=== PATIENT | female | born 1950 | race African-American/Black ===

== ENCOUNTER → 2018-02-20 | Outpatient (CLI) | payer MEDICARE ==
[2018-02-20 12:03] LABS: INTERNATIONAL RATION (INR) 2.29; PROTHROMBIN TIME 26.3 SEC (11.4-15.4)
[2018-02-20 12:08] LABS: HEMATOCRIT 37.9 % (36.0-47.0); HEMOGLOBIN 12.6 g/dL (12.0-15.5); MEAN CORPUSCULAR HEMOGLOBIN 29.9 pg (27.0-33.4); MEAN CORPUSCULAR HGB CONC 33.2 g/dL (32.0-36.0); MEAN CORPUSCULAR VOLUME 90 fl (80-97); PLATELET COUNT 319 10^3/uL (150-450); RED BLOOD COUNT 4.21 10^6/uL (3.72-5.28); RED CELL DISTRIBUTION WIDTH 14.6 % (11.5-14.0); WHITE BLOOD COUNT 4.5 10^3/uL (4.0-10.5)
[2018-02-20 12:31] LABS: ALANINE AMINOTRANSFERASE 20 U/L (9-52); ALBUMIN 4.5 g/dL (3.5-5.0); ALKALINE PHOSPHATASE 91 U/L (38-126); ANION GAP 10 (5-19); ASPARTATE AMINO TRANSFERASE 25 U/L (14-36); BILIRUBIN,DIRECT 0.5 mg/dL (0.0-0.4); BILIRUBIN,TOTAL 0.6 mg/dL (0.2-1.3); BLOOD UREA NITROGEN 11 mg/dL (7-20); CALCIUM 9.4 mg/dL (8.4-10.2); CARBON DIOXIDE 30 mmol/L (22-30); CHLORIDE 99 mmol/L (98-107); GLUCOSE 103 mg/dL (75-110); SODIUM 138.9 mmol/L (137-145); TOTAL PROTEIN 7.8 g/dL (6.3-8.2)
[2018-02-20 12:38] LABS: ABSOLUTE LYMPHOCYTES# (MANUAL) 1.9 10^3/uL (0.5-4.7); ABSOLUTE MONOCYTES # (MANUAL) 0.4 10^3/uL (0.1-1.4); ABSOLUTE NEUTROPHILS# (MANUAL) 2.2 10^3/uL (1.7-8.2); BASOPHILS % (MANUAL) 0 % (0-2); EOSINOPHILS % (MANUAL) 0 % (0-6); LYMPHOCYTES % (MANUAL) 36 % (13-45); MONOCYTES % (MANUAL) 8 % (3-13); SEGMENTED NEUTROPHILS % (MAN) 49 % (42-78); TOTAL CELLS COUNTED 100
[2018-02-20 12:39] LABS: PLATELET COMMENT ADEQUATE; PLATELET GIANT PRESENT
[2018-02-20 12:41] LABS: ACANTHOCYTES SLIGHT; PLATELET LARGE PRESENT; POIKILOCYTOSIS SLIGHT; POLYCHROMASIA SLIGHT
== END ==
LOC: OD 10:47
PROVIDERS: ATTEND Family Medicine Geriatric Medicine
DX: I10 Essential (primary) hypertension (principal); I48.2 Chronic atrial fibrillation; K21.9 Gastro-esophageal reflux disease without esophagitis; M17.0 Bilateral primary osteoarthritis of knee; Z79.899 Other long term (current) drug therapy
CPT/HCPCS: 36415; 80053; 84443; 85025; 85610

== ENCOUNTER → 2018-03-20 | Outpatient (CLI) | payer MEDICARE ==
[2018-03-20 11:57] LABS: INTERNATIONAL RATION (INR) 2.38; PROTHROMBIN TIME 27.1 SEC (11.4-15.4)
== END ==
LOC: LAB 11:30
PROVIDERS: ATTEND Family Medicine Geriatric Medicine
DX: I48.2 Chronic atrial fibrillation (principal)
CPT/HCPCS: 36415; 85610

== ENCOUNTER → 2018-04-08 | Outpatient (CLI) | payer MEDICARE ==
[2018-04-08 10:47] LABS: INTERNATIONAL RATION (INR) 2.33; PROTHROMBIN TIME 26.7 SEC (11.4-15.4)
== END ==
LOC: LAB 10:15
PROVIDERS: ATTEND Family Medicine Geriatric Medicine
DX: I48.2 Chronic atrial fibrillation (principal)
CPT/HCPCS: 36415; 85610

== ENCOUNTER → 2018-04-15 | Outpatient (CLI) | payer MEDICARE ==
[2018-04-15 11:15] LABS: PROTHROMBIN TIME 23.7 SEC (11.4-15.4)
[2018-04-15 11:16] LABS: PARTIAL THROMBOPLASTIN TIME 41.2 SEC (23.5-35.8)
== END ==
LOC: LAB 10:54
PROVIDERS: ATTEND Physician Assistant
DX: M25.512 Pain in left shoulder (principal); Z79.01 Long term (current) use of anticoagulants
CPT/HCPCS: 36415; 85610; 85730

== ENCOUNTER 2018-05-10 14:04 | Emergency (ER) | payer MEDICARE ==
--- NOTE | 2018-05-10 14:55 | ER Document Report ---
ED Medical Screen (RME) - General TRAVEL OUTSIDE OF THE [place] IN LAST 30 DAYS: No - General Chief Complaint: Leg Pain Stated Complaint: LEG PAIN Time Seen by Provider: 05/10/18 14:48 Notes: 67-year-old female with history of DVT (last DVT >1 year ago) that presents to the emergency department today with complaints of right knee pain and swelling which began yesterday. Patient is on Coumadin. Last INR was checked a "couple of weeks ago". Patient denies any injury or trauma to the area. Patient denies any recent immobilization. I have greeted and performed a rapid initial assessment of this patient. A comprehensive ED assessment and evaluation of the patient, analysis of test results, and completion of the medical decision making process will be conducted by additional ED providers. Review of systems: Constitutional: No symptoms reported EENT: No symptoms reported Cardiovascular: No symptoms reported Respiratory: No symptoms reported Gastrointestinal: No symptoms reported Genitourinary: No symptoms reported Musculoskeletal: Right knee pain/swelling. Skin: No symptoms reported Hematologic/Lymphatic: No symptoms reported Neurological/Psychological: No symptoms reported Yes All other systems reviewed and negative PHYSICAL EXAM GENERAL: Alert, interacts well. No acute distress. HEAD: Normocephalic, atraumatic. EYES: Pupils equal, round, and reactive to light. Extraocular movements intact. ENT: Oral mucosa moist, tongue midline. NECK: Full range of motion. Supple. Trachea midline. LUNGS: No respiratory distress. EXTREMITIES: Moves all 4 extremities spontaneously. Pain with medial and lateral stress testing of right knee. Tenderness to palpation over the right knee joint line. Small amount of swelling over the right knee. Suprapatellar effusion, no prepatellar effusion. Trace pitting edema over the right calf and pre-tibial area on the right. No crepitus. NEUROLOGICAL: Alert and oriented x3. Normal speech. PSYCH: Normal affect, normal mood. SKIN: Warm, dry, normal turgor. No rashes or lesions noted. (JENNIFER BUTLER) - Related Data Allergies/Adverse Reactions: morphine Allergy (Uncoded 05/10/18 14:26) toradol Allergy (Uncoded 05/10/18 14:26) Past Medical History - Social History Chew tobacco use (# tins/day): No Frequency of alcohol use: None Drug Abuse: None Renal/ Medical History: Denies: Hx Peritoneal Dialysis - Vital signs Vitals: Temp Pulse Resp BP Pulse Ox 98.5 F 83 14 138/63 H 99 05/10/18 14:28 05/10/18 14:28 05/10/18 14:28 05/10/18 14:28 05/10/18 14:28 Course - Re-evaluation Re-evalutation: 05/10/18 15:11 Patient is specifically concerned that she may have a DVT despite no risk factors aside from history of DVT, patient would like a Doppler to rule out DVT. Patient is also somewhat concerned she may have a fracture due to the pain and swelling. Doppler and x-ray will be ordered. (JEN GARCIA) - Vital Signs Vital signs: Temp Pulse Resp BP Pulse Ox 98.5 F 83 14 138/63 H 99 05/10/18 14:28 05/10/18 14:28 05/10/18 14:28 05/10/18 14:28 05/10/18 14:28 Doctor's Discharge - Discharge Referrals: NATASHA WEBB PAVinnieC [Primary Care Provider] - Follow up as needed Scribe Documentation - Scribe Written by Elena:: Elena Aleman, 05/10/2018 1542 acting as scribe for :: Na
[2018-05-10 15:50] LABS: PROTHROMBIN TIME 21.8 SEC (11.4-15.4)
[2018-05-10 16:38] LABS: ABSOLUTE BASOPHILS # (AUTO) 0.1 10^3/uL (0.0-0.2); ABSOLUTE EOSINOPHILS # (AUTO) 0.1 10^3/uL (0.0-0.6); ABSOLUTE LYMPHOCYTES (AUTO) 1.8 10^3/uL (0.5-4.7); ABSOLUTE MONOCYTES (AUTO) 0.4 10^3/uL (0.1-1.4); ABSOLUTE NEUT (AUTO) 3.4 10^3/uL (1.7-8.2); BASOPHILS % (AUTO) 0.9 % (0-2); EOSINOPHILS % (AUTO) 1.1 % (0-6); HEMOGLOBIN 12.5 g/dL (12.0-15.5); LYMPHOCYTES % (AUTO) 31.5 % (13-45); MEAN CORPUSCULAR HEMOGLOBIN 30.1 pg (27.0-33.4); MEAN CORPUSCULAR HGB CONC 33.7 g/dL (32.0-36.0); MEAN CORPUSCULAR VOLUME 89 fl (80-97); MONOCYTES % (AUTO) 7.2 % (3-13); PLATELET COUNT 315 10^3/uL (150-450); RED BLOOD COUNT 4.14 10^6/uL (3.72-5.28); RED CELL DISTRIBUTION WIDTH 14.8 % (11.5-14.0); SEGMENTED NEUTROPHILS % (AUTO) 59.3 % (42-78); TOTAL CELLS COUNTED % (AUTO) 100 %; WHITE BLOOD COUNT 5.8 10^3/uL (4.0-10.5)
--- NOTE | 2018-05-10 16:41 | RADIOLOGY REPORT (SQ) ---
EXAM DESCRIPTION: VENOUS UNILATERAL LOWER COMPLETED DATE/TIME: 05/10/2018 4:20 pm REASON FOR STUDY: h/o DVT, right leg swelling COMPARISON: None. TECHNIQUE: Dynamic and static jimenez scale and color images acquired of the right leg venous system. S elected spectral images acquired with additional compression and augmentation maneuvers. The contrala teral common femoral vein and saphenofemoral junction were also imaged. Images stored on PACS. LIMITATIONS: None. FINDINGS: COMMON FEMORAL: Normal phasicity, compression and augmentation. No visualized echogenic ma terial on jimenez scale. No defects on color images. FEMORAL: Normal compression and augmentation. No visualized echogenic material on jimenez scale. No defe cts on color images. POPLITEAL: Normal compression, augmentation. No visualized echogenic material on jimenez scale. No defec ts on color images. CALF VESSELS: Normal compression, augmentation. No visualized echogenic material on jimenez scale. No de fects on color images. GSV and SSV: Normal compression, augmentation. No visualized echogenic material on jimenez scale. No def ects on color images. ANY DEEP VENOUS INSUFFICIENCY: No. ANY EVIDENCE OF POPLITEAL CYST: No. OTHER: No other significant finding. CONTRALATERAL COMMON FEMORAL VEIN AND SAPHENOFEMORAL JUNCTION: Normal phasicity, compression and augmentation. No visualized echogenic material on jimenez scale. No de fects on color images. IMPRESSION: NO EVIDENCE DVT OR SVT IN THE RIGHT LEG. TECHNICAL DOCUMENTATION: JOB ID: [id number] [employer]- All Rights Reserved Reading location - IP/workstation name: [email or web address]
--- NOTE | 2018-05-10 16:50 | RADIOLOGY REPORT (SQ) ---
EXAM DESCRIPTION: KNEE RIGHT 3 VIEWS COMPLETED DATE/TIME: 05/10/2018 4:00 pm REASON FOR STUDY: right knee pain and osteoporosis COMPARISON: None. NUMBER OF VIEWS: Three views. TECHNIQUE: AP, lateral, and sunrise patella radiographic images acquired of the right knee. LIMITATIONS: None. FINDINGS: MINERALIZATION: Normal. BONES: No acute fracture or dislocation. No worrisome bone lesions. Small osteophytes. JOINT: No effusion. No chondrocalcinosis. OTHER: No other significant finding. IMPRESSION: MILD DEGENERATIVE CHANGES. NO ACUTE FINDINGS. TECHNICAL DOCUMENTATION: JOB ID: [id number] [employer]- All Rights Reserved Reading location - IP/workstation name: [email or web address]
[2018-05-10 17:01] LABS: ALANINE AMINOTRANSFERASE 20 U/L (9-52); ALBUMIN 4.3 g/dL (3.5-5.0); ALKALINE PHOSPHATASE 101 U/L (38-126); ANION GAP 11 (5-19); ASPARTATE AMINO TRANSFERASE 22 U/L (14-36); BILIRUBIN,DIRECT 0.1 mg/dL (0.0-0.4); BILIRUBIN,TOTAL 0.3 mg/dL (0.2-1.3); BLOOD UREA NITROGEN 7 mg/dL (7-20); CALCIUM 9.3 mg/dL (8.4-10.2); CARBON DIOXIDE 31 mmol/L (22-30); CHLORIDE 99 mmol/L (98-107); GLUCOSE 86 mg/dL (75-110); POTASSIUM 4.2 mmol/L (3.6-5.0); SODIUM 141.1 mmol/L (137-145); TOTAL PROTEIN 7.7 g/dL (6.3-8.2)
[2018-05-10] MEDS ORDERED: HYDROCODONE/ACETAMINOPHEN 5-325 MG TABLET PO ONE (17:19)
[2018-05-10] MEDS ORDERED: HYDROCODONE/ACETAMINOPHEN 5-325 MG (6 TAB/ER DISP) PO PRN (17:20)
--- NOTE | 2018-05-10 17:21 | ER Document Report ---
HPI - HPI Patient complains to provider of: right knee pain Time Seen by Provider: 05/10/18 14:48 Onset: Yesterday Onset/Duration: Sudden Quality of pain: Achy Severity: Severe Pain Level: 4 Context: [facility] emergency department with complaints of right knee pain. Patient reports it started hurting yesterday. Patient does admit to shopping on black Friday and putting up [place] decorations the next day. Denies trauma. Denies twisting knee. Denies past medical history of injury to the knee. Patient reports it hurts to walk on the knee. Patient is taking Coumadin right now for A. fib. Also reports she had a blood clot in her right axilla at one time. Denies other symptoms such as fever nausea vomiting diarrhea. Associated Symptoms: None Exacerbated by: Walking Relieved by: Denies Similar symptoms previously: No Recently seen / treated by doctor: No - DERM Skin Color: Normal Past Medical History - General Information source: Patient, Relative - daughter Last Menstrual Period: hyst - Social History Smoking Status: Never Smoker Chew tobacco use (# tins/day): No Frequency of alcohol use: None Drug Abuse: None Lives with: Family Family History: Reviewed & Not Pertinent Patient has suicidal ideation: No Patient has homicidal ideation: No - Past Medical History Cardiac Medical History: Reports: Hx Atrial Fibrillation, Hx DVT - right axillae Renal/ Medical History: Denies: Hx Peritoneal Dialysis Musculoskeletal Medical History: Reports Hx Arthritis, Reports Hx Fibromyalgia Past Surgical History: Reports: Hx Bowel Surgery, Hx Hysterectomy, Hx Orthopedic Surgery Vertical Provider Document - CONSTITUTIONAL Agree With Documented VS: Yes Exam Limitations: No Limitations General Appearance: WD/WN, No Apparent Distress - INFECTION CONTROL TRAVEL OUTSIDE OF THE [place] IN LAST 30 DAYS: No - HEENT HEENT: Atraumatic, Normocephalic - NECK Neck: Normal Inspection, Supple - RESPIRATORY Respiratory: No Respiratory Distress - CARDIOVASCULAR Cardiovascular: Regular Rate - MUSCULOSKELETAL/EXTREMETIES Musculoskeletal/Extremeties: MAEW, FROM, Tender - right knee medially ttp, no erythema, no obvious deformity\swelling,no warmth, patient has full range of motion good pedal pulse - NEURO Level of Consciousness: Awake, Alert, Appropriate Motor/Sensory: No Motor Deficit - DERM Integumentary: Warm, Dry Adult Front & Back Diagram: 1 - Reports pain, medially ttp Course - Re-evaluation Re-evalutation: 05/10/18 18:34 Labs Doppler and knee x-ray unremarkable. Patient was instructed on negative labs, Doppler and negative knee x-ray no effusion no DVT. Patient was also instructed on labs patient does have an primary care provider appointment on this Friday. She was instructed on conservative treatment including rest ice elevate. Patient was offered crutches and declined reports she has a cane she would use. Patient was also instructed to monitor the knee for warmth redness swelling. She verbalized understanding to all instructions 05/10/18 18:38 Dictation of this chart was performed using voice recognition software; therefore, there may be some unintended grammatical errors. - Vital Signs Vital signs: Temp Pulse Resp BP Pulse Ox 98.5 F 83 14 138/63 H 99 05/10/18 14:28 05/10/18 14:28 05/10/18 14:28 05/10/18 14:28 05/10/18 14:28 - Laboratory Result Diagrams: 05/10/18 16:26 05/10/18 16:26 Laboratory results interpreted by me: 05/10/18 05/10/18 05/10/18 15:28 16:26 16:26 RDW 14.8 H PT 21.8 H Carbon Dioxide 31 H - Diagnostic Test Radiology reviewed: Image reviewed, Reports reviewed - EXAM DESCRIPTION: VENOUS UNILATERAL LOWER COMPLETED DATE/TIME: 05/10/2018 4:20 pm REASON FOR STUDY: h/o DVT, right leg swelling COMPARISON: None. TECHNIQUE: Dynamic and static jimenez scale and color images acquired of the right leg venous system. Selected spectral images acquired with additional compression and augmentation maneuvers. The contralateral common femoral vein and saphenofemoral junction were also imaged. Images stored on PACS. LIMITATIONS: None. FINDINGS: COMMON FEMORAL: Normal phasicity, compression and augmentation. No visualized echogenic material on jimenez scale. No defects on color images. FEMORAL: Normal compression and augmentation. No visualized echogenic material on jimenez scale. No defects on color images. POPLITEAL: Normal compression, augmentation. No visualized echogenic material on jimenez scale. No defects on color images. CALF VESSELS: Normal compression, augmentation. No visualized echogenic material on jimenez scale. No defects on color images. GSV and SSV: Normal compression, augmentation. No visualized echogenic material on jimenez scale. No defects on color images. ANY DEEP VENOUS INSUFFICIENCY: No. ANY EVIDENCE OF POPLITEAL CYST: No. OTHER: No other significant finding. CONTRALATERAL COMMON FEMORAL VEIN AND SAPHENOFEMORAL JUNCTION: Normal phasicity, compression and augmentation. No visualized echogenic material on jimenez scale. No defects on color images. IMPRESSION: NO EVIDENCE DVT OR SVT IN THE RIGHT LEG. TECHNICAL DOCUMENTATION: JOB ID: [id number] [employer]- All Rights Reserved EXAM DESCRIPTION: KNEE RIGHT 3 VIEWS COMPLETED DATE/ TIME: 05/10/2018 4:00 pm REASON FOR STUDY: right knee pain and osteoporosis COMPARISON: None. NUMBER OF VIEWS: Three views. TECHNIQUE: AP, lateral, and sunrise patella radiographic images acquired of the right knee. LIMITATIONS: None. FINDINGS: MINERALIZATION: Normal. BONES: No acute fracture or dislocation. No worrisome bone lesions. Small osteophytes. JOINT: No effusion. No chondrocalcinosis. OTHER: No other significant finding. IMPRESSION: MILD DEGENERATIVE CHANGES. NO ACUTE FINDINGS. Discharge - Discharge Clinical Impression: Right medial knee pain Condition: Stable Disposition: HOME, SELF-CARE Instructions: Oral Narcotic Medication ([facility]) Additional Instructions: *You have been evaluated for right knee pain *Rest/Ice/Elevate your knee *Follow up with orthopedics for continued pain-call for an appointment *Take medication as prescribed *Follow up with Dr Redmond Friday as scheduled *Return to ED for worsening condition, changes, needs Referrals: NATASHA WEBB PA-C [Primary Care Provider] - Follow up as needed
[2018-05-10 17:46] VITALS: BP 123/60
== END 2018-05-10 17:58 | disposition home or self-care (01) ==
LOC: ER 14:04
DX: M25.561 Pain in right knee (principal); I48.91 Unspecified atrial fibrillation; Z79.01 Long term (current) use of anticoagulants; Z86.718 Personal history of other venous thrombosis and embolism
CPT/HCPCS: 99284; 36415; 85025; 85610; 80053; 93971; 73562; A9270 ×2

== ENCOUNTER → 2018-05-12 | Outpatient (CLI) | payer MEDICARE ==
[2018-05-12 11:57] LABS: INTERNATIONAL RATION (INR) 2.13; PROTHROMBIN TIME 24.8 SEC (11.4-15.4)
== END ==
LOC: LAB 11:14
PROVIDERS: ATTEND Family Medicine Geriatric Medicine
DX: I48.2 Chronic atrial fibrillation (principal)
CPT/HCPCS: 36415; 85610

== ENCOUNTER → 2018-06-04 | Outpatient (CLI) | payer MEDICARE ==
[2018-06-04 14:06] LABS: INTERNATIONAL RATION (INR) 3.07; PROTHROMBIN TIME 33.1 SEC (11.4-15.4)
== END ==
LOC: LAB 13:41
PROVIDERS: ATTEND Family Medicine Geriatric Medicine
DX: I48.2 Chronic atrial fibrillation (principal)
CPT/HCPCS: 36415; 85610

== ENCOUNTER → 2018-06-19 | Outpatient (CLI) | payer MEDICARE ==
[2018-06-19 11:45] LABS: PROTHROMBIN TIME 34.2 SEC (11.4-15.4)
== END ==
LOC: LAB 11:08
PROVIDERS: ATTEND Family Medicine Geriatric Medicine
DX: I48.2 Chronic atrial fibrillation (principal)
CPT/HCPCS: 36415; 85610

== ENCOUNTER → 2018-07-01 | Outpatient (CLI) | payer MEDICARE ==
[2018-07-01 11:50] LABS: INTERNATIONAL RATION (INR) 2.39; PROTHROMBIN TIME 27.2 SEC (11.4-15.4)
== END ==
LOC: LAB 11:28
PROVIDERS: ATTEND Family Medicine Geriatric Medicine
DX: I48.2 Chronic atrial fibrillation (principal)
CPT/HCPCS: 36415; 85610

== ENCOUNTER → 2018-07-14 | Outpatient (CLI) | payer MEDICARE ==
[2018-07-14 13:58] LABS: INTERNATIONAL RATION (INR) 2.22; PROTHROMBIN TIME 25.7 SEC (11.4-15.4)
== END ==
LOC: LAB 13:11
PROVIDERS: ATTEND Family Medicine Geriatric Medicine
DX: I48.2 Chronic atrial fibrillation (principal)
CPT/HCPCS: 36415; 85610

== ENCOUNTER → 2018-07-28 | Outpatient (CLI) | payer MEDICARE ==
[2018-07-28 11:35] LABS: INTERNATIONAL RATION (INR) 2.22; PROTHROMBIN TIME 25.7 SEC (11.4-15.4)
== END ==
LOC: LAB 10:51
PROVIDERS: ATTEND Family Medicine Geriatric Medicine
DX: I48.2 Chronic atrial fibrillation (principal)
CPT/HCPCS: 36415; 85610

== ENCOUNTER 2018-08-30 13:53 | Emergency (ER) | payer MEDICARE ==
[2018-08-30] MEDS ORDERED: ONDANSETRON HCL INJ/PF 4 MG/2 ML SDV IV ONE (14:12)
--- NOTE | 2018-08-30 14:16 | ER Document Report ---
ED Medical Screen (RME) - General Chief Complaint: Abdominal Pain Stated Complaint: STOMACH PAIN Time Seen by Provider: 08/30/18 14:11 Primary Care Provider: ANY BAE MD [Primary Care Provider] - Follow up as needed Notes: Patient is complaining of abdominal pain since awakening this morning. Yesterday she did not feel well and did not eat anything, but did not have the abdominal pain until this mornin. She says the pain is located primarily in the midline suprapubic, lower abdomen. She has a history of a previous blockage that required surgery and had similar pain and symptoms at that time. Denies a ny nausea or vomiting. Denies any diarrhea. Last bowel movement was yesterday. Denies any chest pain or shortness of breath. Denies fever. Patient has a history of heart murmur and a clot in her right axilla and for those reasons, she is on Coumadin. History of hysterectomy, rotator cuff surgery. Hx hypertension, GERD. Not diabetic. TRAVEL OUTSIDE OF THE [place] IN LAST 30 DAYS: No - Related Data Allergies/Adverse Reactions: morphine Allergy (Uncoded 08/30/18 13:58) toradol Allergy (Uncoded 08/30/18 13:58) Past Medical History - Past Medical History Cardiac Medical History: Reports: Hx Atrial Fibrillation, Hx DVT - right axillae, Hx Hypertension Renal/ Medical History: Denies: Hx Peritoneal Dialysis Musculoskeltal Medical History: Reports Hx Arthritis, Reports Hx Fibromyalgia Past Surgical History: Reports: Hx Bowel Surgery, Hx Hysterectomy, Hx Orthopedic Surgery Physical Exam - Vital signs Vitals: Temp Pulse Resp BP Pulse Ox 98.4 F 83 18 156/80 H 99 08/30/18 13:59 08/30/18 13:59 08/30/18 13:59 08/30/18 13:59 08/30/18 13:59 Course - Vital Signs Vital signs: Temp Pulse Resp BP Pulse Ox 98.4 F 83 18 156/80 H 99 08/30/18 13:59 08/30/18 13:59 08/30/18 13:59 08/30/18 13:59 08/30/18 13:59 Doctor's Discharge - Discharge Referrals: ANY BAE MD [Primary Care Provider] - Follow up as needed
[2018-08-30] MEDS ORDERED: FENTANYL CITRATE INJ/PF 100 MCG/2 ML AMPUL IV ONE ×2 (14:51→17:08)
[2018-08-30 15:03] LABS: APPEARANCE,URINE CLEAR; BILIRUBIN,URINE NEGATIVE (NEGATIVE); COLOR,URINE YELLOW; GLUCOSE, URINE NEGATIVE (NEGATIVE); KETONES,URINE NEGATIVE (NEGATIVE); LEUKOCYTE ESTERASE,URINE NEGATIVE (NEGATIVE); NITRITE,URINE NEGATIVE (NEGATIVE); PROTEIN,URINE NEGATIVE (NEGATIVE); URINE SPECIFIC GRAVITY 1.014; UROBILINOGEN,URINE NEGATIVE mg/dL (<2.0)
[2018-08-30] MEDS ORDERED: DIPHENHYDRAMINE HCL 50 MG/ML VIAL IV ONE (15:11)
--- NOTE | 2018-08-30 15:18 | ER Document Report ---
ED General - General Chief Complaint: Abdominal Pain Stated Complaint: STOMACH PAIN Time Seen by Provider: 08/30/18 14:11 Primary Care Provider: ANY BAE MD [Primary Care Provider] - Follow up in 3-5 days Notes: Patient is a 67-year-old female who presents to the emergency department with a chief complaint of lower abdominal pain. Her pain started this morning after she woke up. She describes her pain as a sharp, constant pain. It is in her mid lower abdomen. She has not tried anything to try to make her pain better. Walking makes the pain worse. She denies any nausea, vomiting, or diarrhea. She did have a bowel movement yesterday, but states that she had to take some stool softeners. She does take tramadol for chronic pain. Her last colonoscopy was 9 years ago and was unremarkable. Has a history of hypertension, a colon resection in 1999, hysterectomy, GERD, blood clot in her right axillary area, atrial fibrillation, and insomnia. She currently takes tramadol, bisoprolol, Coumadin, omeprazole, and Ambien. She has a prevalent family history of colon cancer. TRAVEL OUTSIDE OF THE [place] IN LAST 30 DAYS: No - Related Data Allergies/Adverse Reactions: Iodinated Contrast- Oral and IV Dye Allergy (Verified 08/30/18 14:47) morphine Allergy (Uncoded 08/30/18 13:58) toradol Allergy (Uncoded 08/30/18 13:58) Past Medical History - Social History Smoking Status: Former Smoker Family History: Reviewed & Not Pertinent Patient has suicidal ideation: No Patient has homicidal ideation: No - Past Medical History Cardiac Medical History: Reports: Hx Atrial Fibrillation, Hx DVT - right axillae, Hx Hypertension Renal/ Medical History: Denies: Hx Peritoneal Dialysis Musculoskeletal Medical History: Reports Hx Arthritis, Reports Hx Fibromyalgia Past Surgical History: Reports: Hx Bowel Surgery, Hx Hysterectomy, Hx Orthopedic Surgery Review of Systems - Review of Systems Notes: REVIEW OF SYSTEMS: CONSTITUTIONAL : Denies recent illness. Denies recent unintentional weight loss. Denies fever, chills, or sweats. EENT: Denies eye, ear, throat, or mouth pain, discharge, or symptoms. Denies nasal or sinus congestion. CARDIOVASCULAR: Denies chest pain. RESPIRATORY: Denies shortness of breath, cough, congestion, difficulty breathing, or wheezing. GASTROINTESTINAL: See HPI GENITOURINARY: Denies difficulty urinating, burning, blood in urine, urgency or frequency. MUSCULOSKELETAL: Denies neck and back pain. Denies joint pain or swelling. SKIN: Denies rash, itchiness, or lesions HEMATOLOGIC : Denies easy bruising or bleeding. LYMPHATIC: Denies swollen, painful, enlarged glands. NEUROLOGICAL: Denies no numbness or tingling denies weakness. Denies headache. Denies altered mental status. Denies alteration in speech. PSYCHIATRIC: Denies stress, anxiety, alteration in sleep patterns, or depression. All other systems reviewed and negative. Physical Exam - Vital signs Vitals: Temp Pulse Resp BP Pulse Ox 98.4 F 83 18 156/80 H 99 08/30/18 13:59 08/30/18 13:59 08/30/18 13:59 08/30/18 13:59 08/30/18 13:59 - Notes Notes: PHYSICAL EXAMINATION: GENERAL: Appears well, healthy, well-nourished, no acute distress. HEAD: Normocephalic, atraumatic. EYES: PERRL, conjunctiva normal, all extraocular movements intact, sclera nonicteric ENT: Moist mucous membranes. NECK: Supple, no noticeable swelling, redness, rash. Normal range of motion. LUNGS: Equal breath sounds bilaterally and clear to auscultation. No wheezes rales or rhonchi. CARDIOVASCULAR: S1-S2, regular rate, regular rhythm. Radial pulses 2+, normal. ABDOMEN: Normoactive bowel sounds. Soft, tender lower abdomen, no guarding, no rebound tenderness, and no masses palpated. EXTREMITIES: Normal strength and range of motion, no pitting or edema. No cyanosis. NEUROLOGICAL: Moves all extremities upon command. Strength 5/5 in all extremities. PSYCH: Normal mood, normal affect. SKIN: Warm, dry. No rash, lesions, ulcerations noted. Normal skin turgor. Course - Re-evaluation Re-evalutation: 08/30/18 17:[address] of the abdomen was discussed with Dr. Mg. I scrolled through the images and noticed she had quite a large amount of stool in her colon. Dr. Mg agrees with me that the patient does need to have an enema and follow-up with her primary care doctor. 08/30/18 20:18 Patient did have 3 large bowel movements here in the emergency department with out an enema, and most likely had help from the barium solution to have a bowel movement. She will not receive an enema in the emergency department. She will follow-up with her primary care provider, who will refer her out for colonoscopy. She is in agreement with this plan. Verbal discharge instructions were given to the patient. They verbalized understanding. They are stable for discharge. - Vital Signs Vital signs: Temp Pulse Resp BP Pulse Ox 98.4 F 83 18 156/80 H 99 08/30/18 13:59 08/30/18 13:59 08/30/18 13:59 08/30/18 13:59 08/30/18 13:59 - Laboratory Result Diagrams: 08/30/18 16:20 08/30/18 15:40 Laboratory results interpreted by me: 08/30/18 08/30/18 08/30/18 14:19 15:40 16:20 RDW 14.4 H PT Sodium 135.6 L Urine Blood SMALL H 08/30/18 16:20 RDW PT 26.2 H Sodium Urine Blood Discharge - Discharge Clinical Impression: Abdominal pain Qualifiers: Abdominal location: lower abdomen, unspecified Qualified Code(s): R10.30 - Lower abdominal pain, unspecified Constipation Qualifiers: Constipation type: unspecified constipation type Qualified Code(s): K59.00 - Constipation, unspecified Condition: Stable Disposition: HOME, SELF-CARE Additional Instructions: You were seen today in the emergency department for abdominal pain. Your CAT scan shows you have nothing acute wrong, but you do have a large amount of stool in your colon. You were able to have large bowel movements here in the emergency department. Please add MiraLAX, 1 capful every day to help keep you regular. You can increase or decrease the amount of MiraLAX to use based on her bowel movements. Follow-up with your primary care provider in regards to this visit. Ask them about decreasing your tramadol use. You may take Tylenol 1000 mg every 6 hours as needed for your chronic pain. If you do not have a bowel movement within 2 days, develop worsening abdominal pain, or have any symptoms that are worrisome to you, please return to the emergency department. Prescriptions: Polyethylene Glycol 3350 [Miralax] 1 cap PO DAILY #527 powder Referrals: ANY BAE MD [Primary Care Provider] - Follow up in 3-5 days
[2018-08-30] MEDS ORDERED: DIPHENHYDRAMINE HCL 50 MG/ML VIAL ONE (15:25)
[2018-08-30 16:07] LABS: ALANINE AMINOTRANSFERASE 18 U/L (9-52); ALBUMIN 4.7 g/dL (3.5-5.0); ALKALINE PHOSPHATASE 118 U/L (38-126); ANION GAP 15 (5-19); ASPARTATE AMINO TRANSFERASE 24 U/L (14-36); BILIRUBIN,DIRECT 0.2 mg/dL (0.0-0.4); BILIRUBIN,TOTAL 0.3 mg/dL (0.2-1.3); BLOOD UREA NITROGEN 8 mg/dL (7-20); CALCIUM 9.3 mg/dL (8.4-10.2); CARBON DIOXIDE 23 mmol/L (22-30); CHLORIDE 98 mmol/L (98-107); GLUCOSE 93 mg/dL (75-110); LIPASE 25.2 U/L (23-300); POTASSIUM 3.9 mmol/L (3.6-5.0); SODIUM 135.6 mmol/L (137-145); TOTAL PROTEIN 8.1 g/dL (6.3-8.2)
[2018-08-30 16:31] LABS: ABSOLUTE BASOPHILS # (AUTO) 0.1 10^3/uL (0.0-0.2); ABSOLUTE LYMPHOCYTES (AUTO) 1.4 10^3/uL (0.5-4.7); ABSOLUTE MONOCYTES (AUTO) 0.3 10^3/uL (0.1-1.4); ABSOLUTE NEUT (AUTO) 5.4 10^3/uL (1.7-8.2); BASOPHILS % (AUTO) 0.9 % (0-2); EOSINOPHILS % (AUTO) 0.2 % (0-6); HEMATOCRIT 40.6 % (36.0-47.0); HEMOGLOBIN 13.4 g/dL (12.0-15.5); LYMPHOCYTES % (AUTO) 19.7 % (13-45); MEAN CORPUSCULAR HEMOGLOBIN 29.6 pg (27.0-33.4); MEAN CORPUSCULAR VOLUME 90 fl (80-97); MONOCYTES % (AUTO) 4.3 % (3-13); PLATELET COUNT 366 10^3/uL (150-450); RED BLOOD COUNT 4.53 10^6/uL (3.72-5.28); RED CELL DISTRIBUTION WIDTH 14.4 % (11.5-14.0); SEGMENTED NEUTROPHILS % (AUTO) 74.9 % (42-78); TOTAL CELLS COUNTED % (AUTO) 100 %; WHITE BLOOD COUNT 7.2 10^3/uL (4.0-10.5)
[2018-08-30 16:38] LABS: INTERNATIONAL RATION (INR) 2.28; PROTHROMBIN TIME 26.2 SEC (11.4-15.4)
--- NOTE | 2018-08-30 17:59 | RADIOLOGY REPORT (SQ) ---
EXAM DESCRIPTION: CT ABD/PELVIS ORAL ONLY COMPLETED DATE/TIME: 08/30/2018 5:46 pm REASON FOR STUDY: abdominal pain COMPARISON: None. TECHNIQUE: CT scan of the abdomen and pelvis performed without intravenous contrast. Enteric contra st was administered. Images reviewed with lung, soft tissue, and bone windows. Reconstructed coronal and sagittal MPR images reviewed. All images stored on PACS. All CT scanners at this facility use dose modulation, iterative reconstruction, and/or weight based d osing when appropriate to reduce radiation dose to as low as reasonably achievable (ALARA). [facility]: Dose Right [facility]: CareDose [facility]: Dose Right [facility]: Teradose 4D [facility]: Smart Frequent Browser RADIATION DOSE: mGy. LIMITATIONS: None. FINDINGS: LOWER CHEST: No significant findings. No nodules or infiltrates. NON-CONTRASTED LIVER, SPLEEN, ADRENALS: Evaluation limited by lack of IV contrast. No identified sign ificant masses. PANCREAS: No masses. No peripancreatic inflammatory changes. GALLBLADDER: No identified stones by CT criteria. No inflammatory changes to suggest cholecystitis. RIGHT KIDNEY AND URETER: No suspicious masses. Assessment limited by lack of IV contrast. No signif icant calcifications. No hydronephrosis or hydroureter. LEFT KIDNEY AND URETER: No suspicious masses. Assessment limited by lack of IV contrast. No signifi cant calcifications. No hydronephrosis or hydroureter. AORTA AND RETROPERITONEUM: No aneurysm. No retroperitoneal masses or adenopathy. BOWEL AND PERITONEAL CAVITY: No dilated loops of bowel. A short segment of thickening of the hollis o f the distal ascending colon extending into the hepatic flexure. No pericolonic fat stranding. No i ntraperitoneal free fluid or free air. No peritoneal mass. APPENDIX: Not visualized. PELVIS, BLADDER, AND ABDOMINAL WALL:Uterus is absent. No free fluid. Urinary bladder is collapsed. BONES: No significant findings. OTHER: No other significant finding. IMPRESSION: 1. No acute findings within the abdomen or pelvis. 2. Short segment of nonspecific wall thickening of the ascending colon. Findings may be accentuated as the colon is incompletely distended. Correlate with patient's colonoscopy history. Infectious, i nflammatory and neoplastic etiologies remain in the differential. COMMENT: Quality ID # [id number]: Final reports with documentation of one or more dose reduction techniques (e.g., Automated exposure control, adjustment of the mA and/or kV according to patient size, use of iterative reconstruction technique) TECHNICAL DOCUMENTATION: JOB ID: [id number] [employer]- All Rights Reserved Reading location - IP/workstation name: [email or web address]
[2018-08-30 20:45] VITALS: BP 132/69
== END 2018-08-30 20:56 | disposition home or self-care (01) ==
LOC: ER 13:53
DX: R10.30 Lower abdominal pain, unspecified (principal); K59.00 Constipation, unspecified; I48.91 Unspecified atrial fibrillation; I10 Essential (primary) hypertension; Z86.718 Personal history of other venous thrombosis and embolism; Z90.710 Acquired absence of both cervix and uterus; Z88.6 Allergy status to analgesic agent
CPT/HCPCS: 96376; 99284; 96374; 96375; 36415; 83690; 85025; 85610; 80053; 81001; 74176; J1200; J3010; J2405

== ENCOUNTER → 2018-09-01 | Outpatient (CLI) | payer MEDICARE ==
[2018-09-01 13:06] LABS: INTERNATIONAL RATION (INR) 1.78; PROTHROMBIN TIME 21.6 SEC (11.4-15.4)
== END ==
LOC: LAB 12:42
PROVIDERS: ATTEND Family Medicine Geriatric Medicine
DX: I48.2 Chronic atrial fibrillation (principal)
CPT/HCPCS: 36415; 85610

== ENCOUNTER → 2018-09-16 | Outpatient (CLI) | payer MEDICARE ==
[2018-09-16 10:59] LABS: INTERNATIONAL RATION (INR) 2.16; PROTHROMBIN TIME 25.1 SEC (11.4-15.4)
== END ==
LOC: LAB 10:38
PROVIDERS: ATTEND Family Medicine Geriatric Medicine
DX: I48.2 Chronic atrial fibrillation (principal)
CPT/HCPCS: 36415; 85610

== ENCOUNTER → 2018-09-21 | Outpatient (CLI) | payer MEDICARE ==
[2018-09-21 11:10] LABS: INTERNATIONAL RATION (INR) 2.12; PROTHROMBIN TIME 24.7 SEC (11.4-15.4)
== END ==
LOC: OD 10:21
PROVIDERS: ATTEND Family Medicine Geriatric Medicine
DX: I48.2 Chronic atrial fibrillation (principal)
CPT/HCPCS: 36415; 85610

== ENCOUNTER → 2018-09-23 | Outpatient (CLI) | payer MEDICARE ==
[2018-09-23 10:54] LABS: INTERNATIONAL RATION (INR) 2.51; PROTHROMBIN TIME 28.3 SEC (11.4-15.4)
[2018-09-23 11:20] LABS: ALANINE AMINOTRANSFERASE 17 U/L (9-52); ALBUMIN 4.6 g/dL (3.5-5.0); ALKALINE PHOSPHATASE 100 U/L (38-126); ASPARTATE AMINO TRANSFERASE 21 U/L (14-36); BILIRUBIN,DIRECT 0.3 mg/dL (0.0-0.4); BILIRUBIN,TOTAL 0.3 mg/dL (0.2-1.3); CHOLESTEROL 222.39 mg/dL (0-200); TRIGLYCERIDES 130 mg/dL (<150)
[2018-09-23 11:37] LABS: DIRECT LDL 89 mg/dL (<100)
== END ==
LOC: LAB 10:05
PROVIDERS: ATTEND Family Medicine Geriatric Medicine
DX: J30.9 Allergic rhinitis, unspecified (principal); I48.2 Chronic atrial fibrillation; E78.5 Hyperlipidemia, unspecified; R05 Cough; I82.A21 Chronic embolism and thrombosis of right axillary vein; K59.00 Constipation, unspecified; M79.7 Fibromyalgia; R94.6 Abnormal results of thyroid function studies; M17.11 Unilateral primary osteoarthritis, right knee; Z29.9 Encounter for prophylactic measures, unspecified; Z68.27 Body mass index [BMI] 27.0-27.9, adult
CPT/HCPCS: 36415; 80061; 80076; 85610

== ENCOUNTER 2018-09-26 22:46 | Emergency (ER) | payer MEDICARE ==
[2018-09-27 00:11] LABS: APPEARANCE,URINE SLIGHTLY-CLOUDY; BILIRUBIN,URINE NEGATIVE (NEGATIVE); COLOR,URINE AMBER; GLUCOSE, URINE NEGATIVE (NEGATIVE); KETONES,URINE NEGATIVE (NEGATIVE); LEUKOCYTE ESTERASE,URINE NEGATIVE (NEGATIVE); NITRITE,URINE POSITIVE (NEGATIVE); PROTEIN,URINE NEGATIVE (NEGATIVE); URINE SPECIFIC GRAVITY 1.029
--- NOTE | 2018-09-27 01:00 | ER Document Report ---
ED Medical Screen (RME) - General Chief Complaint: Urinary Frequency Stated Complaint: URINARY COMPLAINTS Primary Care Provider: ANY REDMOND MD [Primary Care Provider] - Follow up as needed TRAVEL OUTSIDE OF THE [place] IN LAST 30 DAYS: No - HPI Notes: 09/27/18 00:55 Patient is a 67-year old -[place] female who presents to the emergency department with a chief complaint of urinary frequency, pain and burning with urination, low back pain, and generalized abdominal pain with bloating. Patient was seen by Dr. Redmond on September 16 and diagnosed with a urinary tract infection, placed on an antibiotic which she cannot remember the name of but states she completed the 7-day course. Patient continues to have urinary symptoms. Has been taking Azo without relief. Denies fever. Denies nausea vomiting or diarrhea. Patient does state she had a CT scan last month at this hospital and was told she needed to have a colonoscopy because her bowel wall was thickened. She was constipated at that time and took Colace. Patient states she had multiple bowel movements yesterday and that they were her normal. Patient reports history of bowel surgery, and hysterectomy. 09/27/18 01:00 - Related Data Allergies/Adverse Reactions: Iodinated Contrast- Oral and IV Dye Allergy (Verified 09/26/18 22:54) morphine Allergy (Uncoded 09/26/18 22:54) toradol Allergy (Uncoded 09/26/18 22:54) Past Medical History - Past Medical History Cardiac Medical History: Reports: Hx Atrial Fibrillation, Hx DVT - right axillae, Hx Hypertension Renal/ Medical History: Denies: Hx Peritoneal Dialysis Musculoskeltal Medical History: Reports Hx Arthritis, Reports Hx Fibromyalgia Past Surgical History: Reports: Hx Bowel Surgery, Hx Hysterectomy, Hx Orthopedic Surgery Physical Exam - Vital signs Vitals: Temp Pulse Resp BP Pulse Ox 98.6 F 83 20 160/63 H 97 09/26/18 23:05 09/26/18 23:05 09/26/18 23:05 09/26/18 23:05 09/26/18 23:05 Interpretation: Normal - Abdominal Inspection: Normal Distension: No distension Bowel sounds: Hyperactive Organomegaly: No organomegaly Notes: Generally tender throughout abdomen. Course - Re-evaluation Re-evalutation: 09/27/18 01:01 I have greeted and performed a rapid initial assessment of this patient. A comprehensive ED assessment and evaluation of the patient, analysis of test results and completion of the medical decision making process will be conducted by additional ED providers. - Vital Signs Vital signs: Temp Pulse Resp BP Pulse Ox 98.6 F 83 20 160/63 H 97 09/26/18 23:05 09/26/18 23:05 09/26/18 23:05 09/26/18 23:05 09/26/18 23:05 - Laboratory Laboratory results interpreted by me: 09/26/18 23:49 Urine Nitrite POSITIVE H Urine Urobilinogen 4.0 H Doctor's Discharge - Discharge Referrals: ANY REDMOND MD [Primary Care Provider] - Follow up as needed
[2018-09-27] MEDS ORDERED: HYDROCODONE/ACETAMINOPHEN 5-325 MG TABLET PO ONE (01:56)
--- NOTE | 2018-09-27 02:00 | ER Document Report ---
ED General - General Chief Complaint: Urinary Frequency Stated Complaint: URINARY COMPLAINTS Time Seen by Provider: 09/27/18 01:31 Primary Care Provider: ANY REDMOND MD [Primary Care Provider] - Follow up in 3-5 days Notes: Patient is a 67-year-old female presents with complaint of right flank pain and pain in the suprapubic region and pain over her general urethral area. Says it feels like a pressure and a pain when she urinates. She was seen approximately [address] Redmond. She is placed on antibiotic for 7 days. She does not member the name of the antibiotic. She says she is not gotten better and she still has a lot of pain when burning when she pees and therefore came to the ER. No fevers. No vomiting. No diarrhea. Last bowel movement was this morning and was normal. He does have a history of a complete hysterectomy. She is unsure if she still has her appendix. TRAVEL OUTSIDE OF THE [place] IN LAST 30 DAYS: No - Related Data Allergies/Adverse Reactions: Iodinated Contrast- Oral and IV Dye Allergy (Verified 09/26/18 22:54) morphine Allergy (Uncoded 09/26/18 22:54) toradol Allergy (Uncoded 09/26/18 22:54) Past Medical History - Social History Smoking Status: Never Smoker Frequency of alcohol use: None Drug Abuse: None Family History: Reviewed & Not Pertinent - Past Medical History Cardiac Medical History: Reports: Hx Atrial Fibrillation, Hx DVT - right axillae, Hx Hypertension Renal/ Medical History: Denies: Hx Peritoneal Dialysis Musculoskeletal Medical History: Reports Hx Arthritis, Reports Hx Fibromyalgia Past Surgical History: Reports: Hx Bowel Surgery, Hx Hysterectomy, Hx Orthopedic Surgery Review of Systems - Review of Systems Notes: My Normal Review Basic REVIEW OF SYSTEMS: CONSTITUTIONAL : Denies fever, chills, or sweats. Denies recent illness. EENT: Denies eye, ear, throat, or mouth pain or symptoms. Denies nasal or sinus congestion. CARDIOVASCULAR: Denies chest pain. RESPIRATORY: Denies cough, cold, or chest congestion. Denies shortness of br eath, difficulty breathing, or wheezing. GASTROINTESTINAL: Denies abdominal pain. Denies nausea, vomiting, or diarrhea. Denies constipation. Last BM: GENITOURINARY: Denies difficulty urinating, painful urination, burning, frequency, or blood in urine. FEMALE GENITOURINARY: Denies vaginal bleeding, abnormal or irregular periods. LMP: MUSCULOSKELETAL: Denies neck or back pain or joint pain or swelling. SKIN: Denies rash or skin lesions. HEMATOLOGIC : Denies easy bruising or bleeding. LYMPHATIC: Denies swollen, enlarged glands. NEUROLOGICAL: Denies altered mental status or loss of consciousness. Denies headache. Denies weakness or paralysis or loss of use of either side. Denies problems with gait or speech. Denies sensory or motor loss. PSYCHIATRIC: Denies anxiety or stress or depression. ALL OTHER SYSTEMS REVIEWED AND NEGATIVE. Physical Exam - Vital signs Vitals: Temp Pulse Resp BP Pulse Ox 98.6 F 83 20 160/63 H 97 09/26/18 23:05 09/26/18 23:05 09/26/18 23:05 09/26/18 23:05 09/26/18 23:05 Course - Re-evaluation Re-evalutation: 09/27/18 04:29 Reevaluation pain medicine did help some but she still has some pain. I do not see evidence of hydronephrosis on her ultrasound therefore I do not think kidney stone is causing her symptoms. Being that she still has a lot of burning with urination and pain with urination suspect that this is still urinary tract etiology behind her pain. I will place her on Keflex. I informed her that if she is not having improvement in pain in 2 days that she must return to ER so we can reevaluate her. I encouraged her return to ER immediately if she has worsening pain, vomiting, or fevers. Patient's abdominal exam is benign and her pain is not significantly worse with palpation. Most her pain is in the suprapubic region and also in the vaginal region when she urinates; therefore, I do not feel that CT scan is answered at this time. Dictation of this chart was performed using voice recognition software; therefore, there may be some unintended grammatical errors. 09/28/18 06:12 - Vital Signs Vital signs: Temp Pulse Resp BP Pulse Ox 98.4 F 78 15 125/46 L 100 09/27/18 05:19 09/27/18 05:19 09/27/18 05:19 09/27/18 05:19 09/27/18 05:19 - Laboratory Result Diagrams: 09/27/18 02:47 09/27/18 02:47 Laboratory results interpreted by me: 09/26/18 09/27/18 23:49 02:47 RDW 15.2 H Urine Nitrite POSITIVE H Urine Urobilinogen 4.0 H Discharge - Discharge Clinical Impression: Dysuria Abdominal pain Qualifiers: Abdominal location: lower abdomen, unspecified Qualified Code(s): R10.30 - Lower abdominal pain, unspecified Condition: Stable Disposition: HOME, SELF-CARE Additional Instructions: I suspect your pain is probably related to a urinary tract infection that was not completely treated with the initial antibiotic course. Sometimes certain bacteria can be resistant to certain antibiotics and therefore we have to try a different antibiotic. I have given you a shot of one antibiotic and we will place you on another antibiotic called Keflex for the next several days. Please take it as prescribed. I also gave you a small bottle of [place]. Please be aware that [place] does have Tylenol (acetaminophen) in it. Please make sure you do not take more than 4000 mg of acetaminophen a day. Do not drive or care for children after you have taken this medication they will make you sleepy and sometimes impair judgment. Please have a low threshold to return to the ER if you have worsening pain, fevers, vomiting. Please return to the ER in 2 days for reevaluation if you are not having improvement of your symptoms despite treatment. Prescriptions: RX: Cephalexin Monohydrate [Keflex 500 mg Capsule] 500 mg PO BID 5 Days #10 capsule Referrals: ANY REDMOND MD [Primary Care Provider] - Follow up in 3-5 days
[2018-09-27 03:10] LABS: ABSOLUTE LYMPHOCYTES (AUTO) 1.7 10^3/uL (0.5-4.7); ABSOLUTE MONOCYTES (AUTO) 0.4 10^3/uL (0.1-1.4); ABSOLUTE NEUT (AUTO) 4.8 10^3/uL (1.7-8.2); BASOPHILS % (AUTO) 0.4 % (0-2); EOSINOPHILS % (AUTO) 0.2 % (0-6); HEMATOCRIT 43.1 % (36.0-47.0); HEMOGLOBIN 14.3 g/dL (12.0-15.5); LYMPHOCYTES % (AUTO) 24.6 % (13-45); MEAN CORPUSCULAR HEMOGLOBIN 29.9 pg (27.0-33.4); MEAN CORPUSCULAR HGB CONC 33.1 g/dL (32.0-36.0); MEAN CORPUSCULAR VOLUME 90 fl (80-97); MONOCYTES % (AUTO) 5.9 % (3-13); PLATELET COUNT 359 10^3/uL (150-450); RED BLOOD COUNT 4.77 10^6/uL (3.72-5.28); RED CELL DISTRIBUTION WIDTH 15.2 % (11.5-14.0); SEGMENTED NEUTROPHILS % (AUTO) 68.9 % (42-78); TOTAL CELLS COUNTED % (AUTO) 100 %
[2018-09-27 03:26] LABS: ALANINE AMINOTRANSFERASE 18 U/L (9-52); ALBUMIN 4.3 g/dL (3.5-5.0); ALKALINE PHOSPHATASE 99 U/L (38-126); ANION GAP 10 (5-19); ASPARTATE AMINO TRANSFERASE 20 U/L (14-36); BILIRUBIN,DIRECT 0.2 mg/dL (0.0-0.4); BILIRUBIN,TOTAL 0.3 mg/dL (0.2-1.3); BLOOD UREA NITROGEN 11 mg/dL (7-20); CALCIUM 9.9 mg/dL (8.4-10.2); CARBON DIOXIDE 24 mmol/L (22-30); CHLORIDE 105 mmol/L (98-107); GLUCOSE 89 mg/dL (75-110); SODIUM 139.2 mmol/L (137-145); TOTAL PROTEIN 7.6 g/dL (6.3-8.2)
[2018-09-27] MEDS ORDERED: LIDOCAINE 1% INJ-PF (10 MG/ML) 30 ML SDV INJ ONE (04:25)
[2018-09-27] MEDS ORDERED: CEFTRIAXONE INJ 1000 MG VIAL IM ONE (04:25)
--- NOTE | 2018-09-27 04:34 | RADIOLOGY REPORT (SQ) ---
EXAM DESCRIPTION: US RETROPERITONEUM COMPLETED DATE/TME: 09/27/2018 01:55 CLINICAL HISTORY: 67 years, Female, right flank pain COMPARISON: None. TECHNIQUE: Grayscale and color Doppler images of the retroperitoneum LIMITATIONS: None. FINDINGS: The visualized portions of the abdominal aorta are normal with the AP dimension measuring up to 1.8 cm in diameter. Both kidneys are normal in size, shape, and echotexture. There is no evidence of hydronephrosis bilaterally. The right kidney measures 9.2 x 4.5 x 4.1 cm. The left kidney measures 9.4 x 5.1 x 4.3 cm. The urinary bladder appears grossly unremarkable. No wall thickening or luminal mass. IMPRESSION: Unremarkable ultrasound of the retroperitoneum. No hydronephrosis. copyright 2010 [employer]- All Rights Reserved
[2018-09-27] MEDS ORDERED: HYDROCODONE/ACETAMINOPHEN 5-325 MG (6 TAB/ER DISP) PO PRN (05:05)
[2018-09-27 05:42] VITALS: BP 125/46
== END 2018-09-27 05:42 | disposition home or self-care (01) ==
LOC: ER 22:46
DX: R30.0 Dysuria (principal); R10.30 Lower abdominal pain, unspecified; Z90.710 Acquired absence of both cervix and uterus; Z91.041 Radiographic dye allergy status; Z88.5 Allergy status to narcotic agent; Z88.8 Allergy status to other drugs, medicaments and biological substances
CPT/HCPCS: 99284; 96372; 36415; 87086; 85025; 80053; 81001; 76770; J3490; J0696; A9270 ×2

== ENCOUNTER 2018-09-29 12:55 | Emergency (ER) | payer MEDICARE ==
--- NOTE | 2018-09-29 13:58 | ER Document Report ---
ED Medical Screen (RME) - General Chief Complaint: Vaginal Bleeding Stated Complaint: VAGINAL BLEEDING Time Seen by Provider: 09/29/18 13:51 Primary Care Provider: ANY BAE MD [Primary Care Provider] - Follow up as needed TRAVEL OUTSIDE OF THE U[place] IN LAST 30 DAYS: No - HPI Patient complains to provider of: blood in urine Notes: 09/29/18 13:56 Patient is here with complaints of lower abdominal pain and bleeding from her urine. Patient was diagnosed with urinary tract infection a few weeks ago. She was seen 2-3 days ago here and thought to have a partially treated urinary tract infection was placed on Keflex. Urine culture from her visit 2-3 days ago is negative for UTI. She states that today she started developing some bleeding when she urinated. She noticed bright red blood when she wiped. She is on Coumadin due to A. fib. She complains of some lower abdominal/vaginal pain. Patient had an ultrasound on her last visit which was unremarkable of the kidneys. She had a CT of the abdomen and pelvis 1 month ago that showed no significant abnormalities. Exam Nontoxic, no distress. Mild suprapubic tenderness on limited triage abdominal exam. Plan CBC, CMP, PT/INR, UA. An initial examination was made on the patient as part of the triage process, and it was determined a more comprehensive evaluation was necessary. Initial labs were ordered and patient was transferred to another provider in the ED who assumed care and finished evaluation and plan. - Related Data Allergies/Adverse Reactions: Iodinated Contrast- Oral and IV Dye Allergy (Verified 09/29/18 12:57) morphine Allergy (Uncoded 09/29/18 12:57) toradol Allergy (Uncoded 09/29/18 12:57) Past Medical History - Social History Frequency of alcohol use: None Drug Abuse: None - Past Medical History Cardiac Medical History: Reports: Hx Atrial Fibrillation, Hx DVT - right axillae, Hx Hypertension Renal/ Medical History: Denies: Hx Peritoneal Dialysis Musculoskeltal Medical History: Reports Hx Arthritis, Reports Hx Fibromyalgia Past Surgical History: Reports: Hx Bowel Surgery, Hx Hysterectomy, Hx Orthopedic Surgery - back, rotator cuff Physical Exam - Vital signs Vitals: Temp Pulse Resp BP Pulse Ox 98.5 F 85 18 145/71 H 98 09/29/18 13:08 09/29/18 13:08 09/29/18 13:08 09/29/18 13:08 09/29/18 13:08 Course - Vital Signs Vital signs: Temp Pulse Resp BP Pulse Ox 98.5 F 85 18 145/71 H 98 09/29/18 13:08 09/29/18 13:08 09/29/18 13:08 09/29/18 13:08 09/29/18 13:08 Doctor's Discharge - Discharge Referrals: ANY BAE MD [Primary Care Provider] - Follow up as needed
[2018-09-29 14:42] LABS: APPEARANCE,URINE CLEAR; BILIRUBIN,URINE NEGATIVE (NEGATIVE); COLOR,URINE YELLOW; GLUCOSE, URINE NEGATIVE (NEGATIVE); KETONES,URINE NEGATIVE (NEGATIVE); LEUKOCYTE ESTERASE,URINE TRACE (NEGATIVE); NITRITE,URINE NEGATIVE (NEGATIVE); PROTEIN,URINE NEGATIVE (NEGATIVE); URINE SPECIFIC GRAVITY 1.019; UROBILINOGEN,URINE NEGATIVE mg/dL (<2.0)
[2018-09-29 14:57] LABS: ABSOLUTE BASOPHILS # (AUTO) 0.1 10^3/uL (0.0-0.2); ABSOLUTE LYMPHOCYTES (AUTO) 1.7 10^3/uL (0.5-4.7); ABSOLUTE MONOCYTES (AUTO) 0.3 10^3/uL (0.1-1.4); ABSOLUTE NEUT (AUTO) 3.8 10^3/uL (1.7-8.2); EOSINOPHILS % (AUTO) 0.5 % (0-6); HEMATOCRIT 40.1 % (36.0-47.0); HEMOGLOBIN 13.2 g/dL (12.0-15.5); LYMPHOCYTES % (AUTO) 29.5 % (13-45); MEAN CORPUSCULAR HEMOGLOBIN 29.7 pg (27.0-33.4); MEAN CORPUSCULAR HGB CONC 32.9 g/dL (32.0-36.0); MEAN CORPUSCULAR VOLUME 90 fl (80-97); MONOCYTES % (AUTO) 4.3 % (3-13); PLATELET COUNT 319 10^3/uL (150-450); RED BLOOD COUNT 4.45 10^6/uL (3.72-5.28); RED CELL DISTRIBUTION WIDTH 15.3 % (11.5-14.0); SEGMENTED NEUTROPHILS % (AUTO) 63.7 % (42-78); TOTAL CELLS COUNTED % (AUTO) 100 %; WHITE BLOOD COUNT 5.9 10^3/uL (4.0-10.5)
[2018-09-29 15:26] LABS: PARTIAL THROMBOPLASTIN TIME 31.3 SEC (23.5-35.8); PROTHROMBIN TIME 20.8 SEC (11.4-15.4)
--- NOTE | 2018-09-29 15:57 | ER Document Report ---
ED General - General Chief Complaint: Vaginal Bleeding Stated Complaint: VAGINAL BLEEDING Time Seen by Provider: 09/29/18 13:51 Primary Care Provider: ANY BAE MD [Primary Care Provider] - Follow up as needed Mode of Arrival: Ambulatory Information source: Patient TRAVEL OUTSIDE OF THE [place] IN LAST 30 DAYS: No - HPI Patient complains to provider of: Vaginal discomfort, burning when she pees, now having blood in the urine. Onset: Other - 3-4 weeks Onset/Duration: Persistent Quality of pain: Burning Severity: Severe Pain Level: 5 Associated symptoms: None. denies: Chills, Fever Exacerbated by: Denies Relieved by: Denies Similar symptoms previously: No Recently seen / treated by doctor: No Notes: 67-year-old -[place] female with 3-4 weeks of pain in her vaginal area with dysuria. States she has been seen many times by her doctor and also many times in the ER for the same problem. She said nobody has done a pelvic exam on her. She has a history of a total hysterectomy and oophorectomy. She has no fevers, chills, flank pain, or nausea or vomiting. - Related Data Allergies/Adverse Reactions: Iodinated Contrast- Oral and IV Dye Allergy (Verified 09/29/18 12:57) morphine Allergy (Uncoded 09/29/18 12:57) toradol Allergy (Uncoded 09/29/18 12:57) Past Medical History - General Information source: Patient - Social History Smoking Status: Never Smoker Frequency of alcohol use: None Drug Abuse: None Family History: Reviewed & Not Pertinent Patient has suicidal ideation: No Patient has homicidal ideation: No - Past Medical History Cardiac Medical History: Reports: Hx Atrial Fibrillation, Hx DVT - right axillae, Hx Hypertension Renal/ Medical History: Denies: Hx Peritoneal Dialysis Musculoskeletal Medical History: Reports Hx Arthritis, Reports Hx Fibromyalgia Past Surgical History: Reports: Hx Bowel Surgery, Hx Hysterectomy, Hx Orthopedic Surgery - back, rotator cuff Review of Systems - Review of Systems Notes: Constitutional: No fevers. No chills. EENT: No eye redness. No eye pain. No ear pain. No sore throat. Cardiovascular: No chest pain. No palpitations. Respiratory: No cough. No shortness of breath. No respiratory distress. Gastrointestinal: No abdominal pain. No nausea, vomiting, or diarrhea. Genitourinary: Vaginal pain, vaginal bleeding, dysuria Musculoskeletal: Atraumatic. No swelling. No deformities. Skin: No rash or lesions. Lymphatic: No swollen lymph nodes. Neurologic: No headache. No syncope. Psychiatric: No suicidal or homicidal ideation. Physical Exam - Vital signs Vitals: Temp Pulse Resp BP Pulse Ox 98.5 F 85 18 145/71 H 98 09/29/18 13:08 09/29/18 13:08 09/29/18 13:08 09/29/18 13:08 09/29/18 13:08 - Notes Notes: General: Well-developed, well-nourished. In no acute distress. Non-toxic appearing. Cardiac: Well-perfused. Regular rate and rhythm. No murmurs, rubs, or gallops. Pulmonary: No respiratory distress. No cyanosis. Bilateral lung fiels are clear to auscultation. Abdominal: Non-distended. Non-rigid. Bowels sounds are present in all four quadrants. No guarding or rebound. HEENT: Head is atraumatic. Conjunctivae not reddened. No tearing. PERRL. EOMI. Orbits atraumatic. No periorbital swelling or erythema. Oropharynx is without erythema, swelling, or exudates. Neck: Supple. No adenopathy. No meningismus. Dermatologic: Warm with good turgor. No rash. Atraumatic. Chest: Atraumatic. No chest wall tenderness to palpation. Musculoskeletal: Moves all extremities well. No range of motion deficits. no muscular or joint tenderness. No paraspinal muscle tenderness. no midline spinal tenderness or step-off. Genitourinary: CHAPERONED BY ENIO. Patient is in too much discomfort to try to pass a speculum. External genitalia does look atrophic. Neurologic: No gross neurologic deficits. Psychiatric: Normal mood. Course - Re-evaluation Re-evalutation: 09/29/18 15:57 The patient has no estrogen. Sounds like she is got some discomfort in her vaginal area and some dysuria. Suspect atrophic vaginitis. Will do a pelvic exam to look further. 09/29/18 16:51 Labs look good. I meant to go ahead and treat her for atrophic vaginitis and see if this helps with her pain. I will refer her onto gynecology as well - Vital Signs Vital signs: Temp Pulse Resp BP Pulse Ox 98.5 F 85 18 145/71 H 98 09/29/18 13:08 09/29/18 13:08 09/29/18 13:08 09/29/18 13:08 09/29/18 13:08 - Laboratory Result Diagrams: 09/29/18 14:17 09/29/18 15:36 Laboratory results interpreted by me: 09/29/18 09/29/18 09/29/18 14:13 14:17 14:17 RDW 15.3 H PT 20.8 H Sodium Urine Blood SMALL H Ur Leukocyte Esterase TRACE H 09/29/18 15:36 RDW PT Sodium 136.8 L Urine Blood Ur Leukocyte Esterase Discharge - Discharge Clinical Impression: Atrophic vaginitis, Vaginal pain Condition: Good Disposition: HOME, SELF-CARE Instructions: Vaginal Bleeding ([facility]) Additional Instructions: Follow the instructions on the estrogen cream. Use [place] as needed for severe pain only. Be sure that you plan to follow-up with the technician anatomic pathology before you do more than 1 cycle of the estrogen cream. Prescriptions: Hydrocodone/Acetaminophen [[place] 5-325 mg Tablet] 1 tab PO Q6HP PRN #12 tablet PRN Reason: Estrogens,Conjugated [Premarin Vaginal Cream (0.625 mg/gm) 30 gm] 0.5 gm VG DAILY #1 tube Referrals: ANY BAE MD [Primary Care Provider] - Follow up as needed
[2018-09-29 16:18] LABS: ALANINE AMINOTRANSFERASE 25 U/L (9-52); ALBUMIN 3.9 g/dL (3.5-5.0); ALKALINE PHOSPHATASE 75 U/L (38-126); ANION GAP 7 (5-19); ASPARTATE AMINO TRANSFERASE 21 U/L (14-36); BILIRUBIN,DIRECT 0.3 mg/dL (0.0-0.4); BILIRUBIN,TOTAL 0.3 mg/dL (0.2-1.3); BLOOD UREA NITROGEN 11 mg/dL (7-20); CALCIUM 9.6 mg/dL (8.4-10.2); CARBON DIOXIDE 25 mmol/L (22-30); CHLORIDE 105 mmol/L (98-107); GLUCOSE 85 mg/dL (75-110); POTASSIUM 4.3 mmol/L (3.6-5.0); SODIUM 136.8 mmol/L (137-145); TOTAL PROTEIN 7.2 g/dL (6.3-8.2)
[2018-09-29] MEDS ORDERED: HYDROCODONE/ACETAMINOPHEN 5-325 MG TABLET PO ONE (16:51)
[2018-09-29 17:09] VITALS: BP 142/68
== END 2018-09-29 17:09 | disposition home or self-care (01) ==
LOC: ER 12:55
DX: N95.2 Postmenopausal atrophic vaginitis (principal); R10.2 Pelvic and perineal pain; N93.9 Abnormal uterine and vaginal bleeding, unspecified; R31.9 Hematuria, unspecified; Z90.710 Acquired absence of both cervix and uterus; Z90.79 Acquired absence of other genital organ(s); Z91.041 Radiographic dye allergy status; Z88.5 Allergy status to narcotic agent; Z88.8 Allergy status to other drugs, medicaments and biological substances; I10 Essential (primary) hypertension; R30.0 Dysuria
CPT/HCPCS: 99283; 36415; 85025; 85610; 85730; 80053; 81001; A9270

== ENCOUNTER → 2018-10-22 | Outpatient (CLI) | payer MEDICARE ==
[2018-10-22 11:12] LABS: INTERNATIONAL RATION (INR) 1.41
== END ==
LOC: LAB 10:30
PROVIDERS: ATTEND Family Medicine Geriatric Medicine
DX: I48.2 Chronic atrial fibrillation (principal)
CPT/HCPCS: 36415; 85610

== ENCOUNTER → 2018-10-28 | Outpatient (CLI) | payer MEDICARE ==
[2018-10-28 11:31] LABS: INTERNATIONAL RATION (INR) 1.72
== END ==
LOC: LAB 10:53
PROVIDERS: ATTEND Family Medicine Geriatric Medicine
DX: I48.2 Chronic atrial fibrillation (principal)
CPT/HCPCS: 36415; 85610

== ENCOUNTER → 2018-11-03 | Outpatient (CLI) | payer MEDICARE ==
[2018-11-03 10:59] LABS: PROTHROMBIN TIME 22.7 SEC (11.4-15.4)
== END ==
LOC: LAB 09:42
PROVIDERS: ATTEND Family Medicine Geriatric Medicine
DX: I48.2 Chronic atrial fibrillation (principal)
CPT/HCPCS: 36415; 85610

== ENCOUNTER → 2018-11-16 | Outpatient (CLI) | payer MEDICARE ==
[2018-11-16 10:51] LABS: INTERNATIONAL RATION (INR) 2.47
== END ==
LOC: LAB 10:00
PROVIDERS: ATTEND Family Medicine Geriatric Medicine
DX: I48.2 Chronic atrial fibrillation (principal)
CPT/HCPCS: 36415; 85610

== ENCOUNTER → 2019-01-06 | Outpatient (CLI) | payer MEDICARE ==
[2019-01-06 10:06] LABS: INTERNATIONAL RATION (INR) 2.06; PROTHROMBIN TIME 23.5 SEC (11.4-15.4)
== END ==
LOC: LAB 09:41
PROVIDERS: ATTEND Family Medicine Geriatric Medicine
DX: I48.2 Chronic atrial fibrillation (principal)
CPT/HCPCS: 36415; 85610

== ENCOUNTER → 2019-01-19 | Outpatient (CLI) | payer MEDICARE ==
[2019-01-19 15:45] LABS: INTERNATIONAL RATION (INR) 3.33; PROTHROMBIN TIME 34.6 SEC (11.4-15.4)
== END ==
LOC: LAB 15:25
PROVIDERS: ATTEND Family Medicine Geriatric Medicine
DX: I48.2 Chronic atrial fibrillation (principal)
CPT/HCPCS: 36415; 85610

== ENCOUNTER → 2019-02-01 | Outpatient (CLI) | payer MEDICARE ==
[2019-02-01 11:30] LABS: INTERNATIONAL RATION (INR) 2.27; PROTHROMBIN TIME 25.4 SEC (11.4-15.4)
== END ==
LOC: LAB 10:00
PROVIDERS: ATTEND Family Medicine Geriatric Medicine
DX: I48.2 Chronic atrial fibrillation (principal)
CPT/HCPCS: 36415; 85610

== ENCOUNTER 2019-02-11 07:45 | Emergency (ER) | payer MEDICARE ==
--- NOTE | 2019-02-11 08:13 | ER Document Report ---
HPI - HPI Time Seen by Provider: 02/11/19 08:00 Pain Level: 5 Context: Patient is a 68-year-old female with a history of fibromyalgia, osteoporosis, arthritis, hypertension, atrial fibrillation, hysterectomy, bowel surgery, back surgery, and rotator cuff surgery who presents to the emergency department with right arm pain. 4 days ago she tripped over her sheets in her bedroom and she landed on her right arm. She denies hitting her head. Denies any loss of consciousness. She is able to move her arm, but states she continues to have pain. She is able to move all her fingers with no problem. She has been taking tramadol and her last dose was an hour ago. States that she also has mild right hip pain, but states that it feels like her normal osteoporosis and arthritis. - NEURO Neurology: DENIES: Headache, Weakness - CARDIOVASCULAR Cardiovascular: DENIES: Chest pain - RESPIRATORY Respiratory: DENIES: Trouble Breathing, Coughing - GASTROINTESTINAL Gastrointestinal: DENIES: Abdominal Pain - MUSCULOSKELETAL Musculoskeletal: REPORTS: Extremity pain - right arm. DENIES: Swelling - DERM Skin Color: Normal Skin Problems: None Past Medical History - General Information source: Patient - Social History Smoking Status: Never Smoker Frequency of alcohol use: None Drug Abuse: None Family History: Reviewed & Not Pertinent Patient has suicidal ideation: No Patient has homicidal ideation: No - Past Medical History Cardiac Medical History: Reports: Hx Atrial Fibrillation, Hx DVT - right axillae, Hx Hypertension Renal/ Medical History: Denies: Hx Peritoneal Dialysis Musculoskeletal Medical History: Reports Hx Arthritis, Reports Hx Fibromyalgia Past Surgical History: Reports: Hx Bowel Surgery, Hx Hysterectomy, Hx Orthopedic Surgery - back, rotator cuff Vertical Provider Document - CONSTITUTIONAL Agree With Documented VS: Yes Exam Limitations: No Limitations General Appearance: No Apparent Distress - INFECTION CONTROL TRAVEL OUTSIDE OF THE [place] IN LAST 30 DAYS: No - HEENT HEENT: Atraumatic, Normocephalic, PERRLA - NECK Neck: Normal Inspection - RESPIRATORY Respiratory: Breath Sounds Normal, No Respiratory Distress - CARDIOVASCULAR Cardiovascular: Regular Rate, Regular Rhythm Pulses: Normal: Radial - MUSCULOSKELETAL/EXTREMETIES Musculoskeletal/Extremeties: FROM, Tender - right forearm, upper arm and shoulder, No Edema - NEURO Level of Consciousness: Awake, Alert, Appropriate Motor/Sensory: No Motor Deficit, No Sensory Deficit - DERM Integumentary: Warm, Dry, No Rash Course - Re-evaluation Re-evalutation: 02/11/19 09:25 There is no fracture noted on the patient's x-rays at this time. No vascular compromise noted. Capillary refill less than 3 seconds. There is no uneven swelling. I am very low suspicion for a DVT at this time. No swelling noted. Patient will continue her tramadol and follow-up with her primary care provider. An Marcus wrap and sling will be provided. Follow-up precautions were given. Verbal discharge instructions were given to the patient. They verbalized understanding. They are stable for discharge. - Vital Signs Vital signs: Temp Pulse Resp BP Pulse Ox 98.2 F 86 16 141/62 H 100 02/11/19 07:50 02/11/19 07:50 02/11/19 07:50 02/11/19 07:50 02/11/19 07:50 Procedures - Immobilization Right Arm Pre-Proc Neuro Vasc Exam: Normal Immobilizer type: Marcus wrap, Sling Performed by: RN Post-Proc Neuro Vasc Exam: Normal, Unchanged from pre-exam Alignment checked and good: Yes Discharge - Discharge Clinical Impression: Right arm pain Right shoulder pain Qualifiers: Chronicity: acute Qualified Code(s): M25.511 - Pain in right shoulder Condition: Stable Disposition: HOME, SELF-CARE Additional Instructions: You are seen today in the emergency department for right arm and shoulder pain. There is no fracture on your x-ray. You are being provided a sling and an Marcus wrap. He can keep your arm wrapped in a sling to help protect it. You can take Tylenol 1000 mg every 6 hours as needed for your pain. You can continue taking your tramadol. Please follow-up with your primary care provider in regards to this visit. Referrals: ANY BAE MD [Primary Care Provider] - Follow up in 3-5 days
--- NOTE | 2019-02-11 09:25 | RADIOLOGY REPORT (SQ) ---
EXAM DESCRIPTION: FOREARM RIGHT; SHOULDER RIGHT 2 OR MORE VIEWS; HUMERUS RIGHT COMPLETED DATE/TIME: 02/11/2019 8:37 am REASON FOR STUDY: arm pain/fall COMPARISON: None. NUMBER OF VIEWS: Three views of the right shoulder, two views of the right humerus, two views of the right forearm TECHNIQUE: Three views of the right shoulder, two views of the right humerus, two views of the right forearm LIMITATIONS: None. FINDINGS: MINERALIZATION: Normal. BONES: No acute fracture. No worrisome bone lesions. 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 SOFT TISSUES: No obvious swelling or foreign body. OTHER: No other significant finding. IMPRESSION: 1. No fracture or dislocation of the right shoulder. 2. No fracture or dislocation of the right humerus. 3. No fracture or dislocation of the right forearm. TECHNICAL DOCUMENTATION: JOB ID: [id number] [employer]- All Rights Reserved Reading location - IP/workstation name: [email or web address]
--- NOTE | 2019-02-11 09:25 | RADIOLOGY REPORT (SQ) ---
EXAM DESCRIPTION: FOREARM RIGHT; SHOULDER RIGHT 2 OR MORE VIEWS; HUMERUS RIGHT COMPLETED DATE/TIME: 02/11/2019 8:37 am REASON FOR STUDY: arm pain/fall COMPARISON: None. NUMBER OF VIEWS: Three views of the right shoulder, two views of the right humerus, two views of the right forearm TECHNIQUE: Three views of the right shoulder, two views of the right humerus, two views of the right forearm LIMITATIONS: None. FINDINGS: MINERALIZATION: Normal. BONES: No acute fracture. No worrisome bone lesions. 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 SOFT TISSUES: No obvious swelling or foreign body. OTHER: No other significant finding. IMPRESSION: 1. No fracture or dislocation of the right shoulder. 2. No fracture or dislocation of the right humerus. 3. No fracture or dislocation of the right forearm. TECHNICAL DOCUMENTATION: JOB ID: [id number] [employer]- All Rights Reserved Reading location - IP/workstation name: [email or web address]
--- NOTE | 2019-02-11 09:25 | RADIOLOGY REPORT (SQ) ---
EXAM DESCRIPTION: FOREARM RIGHT; SHOULDER RIGHT 2 OR MORE VIEWS; HUMERUS RIGHT COMPLETED DATE/TIME: 02/11/2019 8:37 am REASON FOR STUDY: arm pain/fall COMPARISON: None. NUMBER OF VIEWS: Three views of the right shoulder, two views of the right humerus, two views of the right forearm TECHNIQUE: Three views of the right shoulder, two views of the right humerus, two views of the right forearm LIMITATIONS: None. FINDINGS: MINERALIZATION: Normal. BONES: No acute fracture. No worrisome bone lesions. 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 SOFT TISSUES: No obvious swelling or foreign body. OTHER: No other significant finding. IMPRESSION: 1. No fracture or dislocation of the right shoulder. 2. No fracture or dislocation of the right humerus. 3. No fracture or dislocation of the right forearm. TECHNICAL DOCUMENTATION: JOB ID: [id number] [employer]- All Rights Reserved Reading location - IP/workstation name: [email or web address]
[2019-02-11] MEDS ORDERED: HYDROCODONE/ACETAMINOPHEN 5-325 MG (6 TAB/ER DISP) PO PRN (09:36)
[2019-02-11 10:00] VITALS: BP 136/72
== END 2019-02-11 10:00 | disposition home or self-care (01) ==
LOC: ER 07:45
DX: M25.511 Pain in right shoulder (principal); M79.601 Pain in right arm; I48.91 Unspecified atrial fibrillation; M79.7 Fibromyalgia; I10 Essential (primary) hypertension; Z86.718 Personal history of other venous thrombosis and embolism
CPT/HCPCS: 99283; 73090; 73060; 73030; A9270